=== PATIENT | female | born 1990 | race Caucasian/White ===

== ENCOUNTER 2016-11-27 11:24 | Observation (INO) | payer BC, OTHER ==
[~2016-11-27] VITALS: Ht 165.1 cm; Wt 86.4 kg
[2016-11-27 12:12] VITALS: BP 130/69
== END 2016-11-27 13:50 | disposition home or self-care (01) ==
LOC: LDOP 11:24 → LDIP 13:38
PROVIDERS: ADMIT Obstetrics & Gynecology; ATTEND Obstetrics & Gynecology
DX: O62.9 Abnormality of forces of labor, unspecified (principal); O47.03 False labor before 37 completed weeks of gestation, third trimester; Z3A.33 33 weeks gestation of pregnancy
CPT/HCPCS: 36415; 59025; 81003; 82731; G0378

== ENCOUNTER 2016-12-30 18:15 | Outpatient (CLI) | payer BC, OTHER ==
[~2016-12-30] VITALS: Ht 165.1 cm; Wt 90.9 kg
[2016-12-30 18:28] VITALS: BP 143/72
== END 2016-12-30 20:23 | disposition home or self-care (01) ==
LOC: LDOP 18:15
PROVIDERS: ATTEND Obstetrics & Gynecology
DX: O62.9 Abnormality of forces of labor, unspecified (principal); O26.893 Other specified pregnancy related conditions, third trimester; R10.9 Unspecified abdominal pain; Z3A.38 38 weeks gestation of pregnancy
CPT/HCPCS: 59025; 99211; G0463

== ENCOUNTER 2017-01-08 22:09 | Observation (INO) | payer BC, OTHER ==
[~2017-01-08] VITALS: Ht 165.1 cm; Wt 90.9 kg
== END 2017-01-09 02:50 | disposition home or self-care (01) ==
LOC: LDOP 22:09 → LDIP 01-09
PROVIDERS: ADMIT Obstetrics & Gynecology; ATTEND Obstetrics & Gynecology
DX: O62.9 Abnormality of forces of labor, unspecified (principal); O26.893 Other specified pregnancy related conditions, third trimester; R10.9 Unspecified abdominal pain; Z3A.39 39 weeks gestation of pregnancy
CPT/HCPCS: 59025; G0378

== ENCOUNTER 2017-01-10 23:24 | Inpatient (IN) | payer OTHER ==
[~2017-01-10] VITALS: Ht 165.1 cm; Wt 90.9 kg
[2017-01-10 23:30] VITALS: BP 139/82
[2017-01-10] MEDS: D5%-LACTATED RINGERS 1,000 ML IV SCH (23:39)
[2017-01-10] MEDS ORDERED: NEWBORN KIT ONE (23:44)
[2017-01-10] MEDS ORDERED: FENTANYL PF 100 MCG/2ML ONE (23:46)
[2017-01-10] MEDS: LACTATED RINGERS 1,000 ML IV SCH (23:51)
[2017-01-11] MEDS ORDERED: FENTANYL PF 100 MCG/2ML IV PRN
[2017-01-11] MEDS ORDERED: FENTANYL PF 100 MCG/2ML IVPush PRN
[2017-01-11] MEDS ORDERED: PENICILLIN GK 5,000,000 UNITS in DEXTROSE 5% 100 ML IVPB ONE
[2017-01-11] MEDS ORDERED: CALCIUM CARBONATE 500 MG TAB.CHEW PO PRN
[2017-01-11] MEDS ORDERED: ONDANSETRON 2MG/ML, 2ML IVPush PRN
[2017-01-11 00:22] LABS: HEMATOCRIT 34.3 % (34.6-47.8); HEMOGLOBIN 10.9 g/dL (11.7-16.4); WHITE BLOOD COUNT 12.6 x10^3/uL (3.4-10)
[2017-01-11] MEDS ORDERED: BUPIVACAINE/PF 0.25% ONE (01:10)
[2017-01-11] MEDS ORDERED: FENTANYL/BUPIV./NS/PF 250 ML EPIDCONT ONE (01:10)
[2017-01-11] MEDS ORDERED: LIDOCAINE 1%, 20ML ONE (01:32)
[2017-01-11] MEDS ORDERED: MISOPROSTOL 200 MCG TABLET ONE (01:32)
[2017-01-11] MEDS ORDERED: OXYTOCIN 30U/ 0.9% NaCL 500ML 500 ML ONE ×2 (01:32→08:31)
[2017-01-11] MEDS: PENICILLIN GK 2,500,000 UNITS in DEXTROSE 5% 100 ML IVPB SCH ×3 (04:00→08:39)
[2017-01-11] MEDS: LACTATED RINGERS 1,000 ML IV SCH (07:39)
[2017-01-11] MEDS: D5%-LACTATED RINGERS 1,000 ML IV SCH (07:39)
[2017-01-11] MEDS ORDERED: OXYTOCIN 30U/ 0.9% NaCL 500ML 500 ML IV PRN (08:25)
[2017-01-11] MEDS: OXYTOCIN 30U/ 0.9% NaCL 500ML 500 ML IV ONE ×2 (08:35→10:17)
[2017-01-11] MEDS: OXYTOCIN 30U/ 0.9% NaCL 500ML 500 ML IV SCH ×2 (10:19→20:05)
[2017-01-11] MEDS ORDERED: DOCUSATE 100 MG CAPSULE PO PRN (10:30)
[2017-01-11] MEDS ORDERED: ONDANSETRON 2MG/ML, 2ML IV PRN (10:30)
[2017-01-11] MEDS ORDERED: ACETAMINOPHEN 325 MG TABLET PO PRN (10:30)
[2017-01-11] MEDS ORDERED: MISOPROSTOL 200 MCG TABLET PR PRN (10:30)
[2017-01-11] MEDS ORDERED: OXYcodone/APAP 5/325MG TABLET PO PRN (10:30)
[2017-01-11] MEDS ORDERED: METHYLERGONOVINE 0.2 MG/ML IM PRN (10:30)
[2017-01-11] MEDS ORDERED: OXYcodone/APAP 5/325MG TABLET ONE (12:01)
[2017-01-11] MEDS ORDERED: IBUPROFEN 600 MG TABLET ONE (12:01)
[2017-01-11] MEDS: IBUPROFEN 600 MG TABLET PO PRN ×2 (12:02→19:34)
[2017-01-11] MEDS: OXYcodone/APAP 5/325MG TABLET PO PRN ×2 (12:02→19:34)
[2017-01-11 12:10] VITALS: BP 126/75
[2017-01-11 16:00] VITALS: BP 124/74
[2017-01-11 18:35] LABS: HEMATOCRIT 30.7 % (34.6-47.8); HEMOGLOBIN 9.6 g/dL (11.7-16.4); WHITE BLOOD COUNT 13.7 x10^3/uL (3.4-10)
[2017-01-11 21:00] VITALS: BP 114/68
[2017-01-12] MEDS: OXYcodone/APAP 5/325MG TABLET PO PRN ×4 (00:33→18:04)
[2017-01-12 01:15] VITALS: BP 118/72
[2017-01-12] MEDS: OXYTOCIN 30U/ 0.9% NaCL 500ML 500 ML IV SCH (06:05)
[2017-01-12 08:20] VITALS: BP 124/79
[2017-01-12] MEDS ORDERED: PRENATAL VIT/IRON/FA 1 EACH TABLET PO SCH (09:00)
[2017-01-12] MEDS: IBUPROFEN 600 MG TABLET PO PRN (13:31)
[2017-01-12] MEDS ORDERED: OXYC-302 PO (13:56)
[2017-01-12] MEDS ORDERED: IBUP-1222 PO (13:58)
== END 2017-01-12 18:06 | disposition home or self-care (01) | DRG 775 ==
LOC: LDOP 23:24 → LDIP 23:38 → 2NW 01-11 12:05
PROVIDERS: ADMIT Obstetrics & Gynecology; ATTEND Obstetrics & Gynecology
PROC: 10E0XZZ Delivery of Products of Conception, External Approach (ICD-10-PCS; principal; 2017-01-11)
PROC: 0KQM0ZZ Repair Perineum Muscle, Open Approach (ICD-10-PCS; 2017-01-11)
PROC: 10907ZC Drainage of Amniotic Fluid, Therapeutic from Products of Conception, Via Natural or Artificial Opening (ICD-10-PCS; 2017-01-11)
PROC: 3E0S3CZ (ICD-10-PCS; 2017-01-11)
PROC: 00HU33Z Insertion of Infusion Device into Spinal Canal, Percutaneous Approach (ICD-10-PCS; 2017-01-11)
DX: O34.219 Maternal care for unspecified type scar from previous cesarean delivery (principal); O99.824 Streptococcus B carrier state complicating childbirth; O70.1 Second degree perineal laceration during delivery; Z37.0 Single live birth; Z3A.40 40 weeks gestation of pregnancy
CPT/HCPCS: 36415; 85025; 86850; 86900; J2540; J3010; J3490; J2590; J7120